=== PATIENT | male | born 1970 | race Two or more races ===

== ENCOUNTER 2019-06-29 05:35 | Inpatient (IN) | payer MEDICAID ==
[~2019-06-29] VITALS: Ht 170.2 cm; Wt 65.0 kg
[~2019-06-29 05:35] MED LIST: ADA30 PO; APAP500 MG PO; APR50 PO; B COMPLEX1 TA2 PO; CHLORTHALIDONE25 MG; CHLORTHALIDONE25 MG PO; CLINDAMYCIN HC300 MG PO; FLA500 PO; HYDRALAZINE HCL25 MG; HYDRALAZINE HY100 MG PO; HYDRALAZINE HYD10 M1 PO; LAC PO; LEVAQUIN750 MG PO; LEVOFLOXACIN500 M1 PO; LIPI20 PO; METOPROLOL TART25 M1 PO; MINOXIDIL2.5 MG PO; NEPHRO-VITE1 TAB; PHOS PO; PRI20 PO; TERAZOSIN HCL2 MG; TERAZOSIN HCL2 MG PO; ZESTRIL40 MG PO; [UNRECOGNIZED DRUG - OTHER] PO
[2019-06-29 05:40] VITALS: Ht 170.2 cm; Wt 65.0 kg
[2019-06-29 06:30] LABS: ALBUMIN 3.4 g/dL (3.4-5.0); BILIRUBIN TOTAL 0.8 mg/dL (0.20-1.00); CALCIUM 9.3 mg/dL (8.5-10.1); POTASSIUM SERUM 4.9 mmol/L (3.5-5.1); TOTAL PROTEIN, SERUM 7.1 g/dL (6.4-8.2)
[2019-06-29 06:35] LABS: BASOPHIL % 0.5 % (0-2); PLATELET COUNT 181 x10^3mcL (130-400)
[2019-06-29 06:39] LABS: RED CELL DISTRIBUTION WIDTH 15.9 % (11.5-14.5)
[2019-06-29 07:06] LABS: CHOLESTEROL/HDL RATIO 2.3; CREATININE SERUM 6.8 mg/dL (0.7-1.3)
[2019-06-29] MEDS ORDERED: DIOVAN160 MG PO (07:24)
[2019-06-29 10:36] VITALS: BP 167/110
[2019-06-29 10:46] VITALS: BP 182/116
[2019-06-29 16:14] VITALS: BP 165/97
[2019-06-29 22:00] VITALS: BP 150/90
[2019-06-30 05:18] VITALS: BP 151/91
[2019-06-30 06:41] LABS: BASOPHIL % 0.7 % (0-2); PLATELET COUNT 183 x10^3mcL (130-400)
[2019-06-30 06:56] LABS: RED CELL DISTRIBUTION WIDTH 15.9 % (11.5-14.5)
[2019-06-30 06:57] LABS: CALCIUM 8.8 mg/dL (8.5-10.1)
[2019-06-30 07:07] LABS: CREATININE SERUM 5.5 mg/dL (0.7-1.3)
[2019-06-30 07:33] VITALS: BP 162/98
[2019-06-30 11:48] VITALS: BP 168/101
[2019-06-30 14:27] VITALS: BP 157/89
[2019-06-30 16:19] VITALS: BP 160/97
[2019-06-30 22:13] VITALS: BP 179/97
[2019-07-01 04:00] VITALS: BP 136/77
[2019-07-01 06:40] LABS: BASOPHIL % 0.5 % (0-2); PLATELET COUNT 187 x10^3mcL (130-400)
[2019-07-01 07:22] LABS: CALCIUM 9.2 mg/dL (8.5-10.1); CARBON DIOXIDE 26.4 mmol/L (21-32)
[2019-07-01 07:27] LABS: RED CELL DISTRIBUTION WIDTH 15.6 % (11.5-14.5)
[2019-07-01 07:34] LABS: CREATININE SERUM 8.4 mg/dL (0.7-1.3); POTASSIUM SERUM 5.7 mmol/L (3.5-5.1)
[2019-07-01 08:02] VITALS: BP 116/77
[2019-07-01] MEDS ORDERED: ZITHROMAX TRI-500 MG PO (11:01)
[2019-07-01 11:58] VITALS: BP 168/98
== END 2019-07-01 14:57 | disposition home or self-care (01) | DRG 194 ==
LOC: ED 05:35 → DU 08:46
PROVIDERS: Specialist; ADMIT Internal Medicine
DX: I13.2 Hypertensive heart and chronic kidney disease with heart failure and with stage 5 chronic kidney disease, or end stage renal disease (principal); J96.20 Acute and chronic respiratory failure, unspecified whether with hypoxia or hypercapnia; I21.A1 Myocardial infarction type 2; J18.9 Pneumonia, unspecified organism; N18.6 End stage renal disease; J90 Pleural effusion, not elsewhere classified; I08.3 Combined rheumatic disorders of mitral, aortic and tricuspid valves; I50.33 Acute on chronic diastolic (congestive) heart failure; E78.5 Hyperlipidemia, unspecified; Z99.2 Dependence on renal dialysis; Z68.22 Body mass index [BMI] 22.0-22.9, adult
CPT/HCPCS: 83880; 87116; 87206; G0378; J0360; J2543; J7030; J7050; J7620; Q0092